=== PATIENT | male | born 1995 | race Caucasian/White ===

== ENCOUNTER 2017-01-29 11:58 | Emergency (ER) | payer OTHER ==
[~2017-01-29] VITALS: Ht 188 cm; Wt 97.8 kg
[2017-01-29 12:49] VITALS: BP 125/84
== END 2017-01-29 12:54 | disposition home or self-care (01) ==
LOC: ED 11:59
DX: J06.9 Acute upper respiratory infection, unspecified (principal); J11.1 Influenza due to unidentified influenza virus with other respiratory manifestations
CPT/HCPCS: 87070; 87651; 99282; 99283